=== PATIENT | male | born 1990 | race African-American/Black ===

== ENCOUNTER 2016-07-24 20:50 | Emergency (ER) | payer OTHER ==
[~2016-07-24] VITALS: Ht 172.7 cm; Wt 104.3 kg
[~2016-07-24 20:50] MED LIST: AUGMENTIN 875-1 EACH PO; COLACE 100 MG100 MG PO; FLEXERIL PO; IBUPROFEN 600600 M1 PO; IBUPROFEN 800800 M1 PO; NOHOMEMEDICATIONS; NORCO 5-325 TA1 EACH PO; PEPCID20 MG PO; TUSSIONEX PENN473 ML PO; ZOFRAN ODT4 MG PO
[2016-07-24 21:25] LABS: ABSOLUTE NEUTROPHILS 4.3 thou/uL (1.4-8.2); BASOPHILS 0.4 % (0.0-2.0); EOSINOPHILS 1.2 % (0.0-3.0); HEMATOCRIT 43.1 % (42.0-52.0); HEMOGLOBIN 14.3 gm/dL (14.0-18.0); LYMPHOCYTES 36.1 % (24.0-44.0); MCH 29.5 pg (26.0-34.0); MCHC 33.1 g/dL (28.0-37.0); MCV 89.2 fL (80.0-100.0); MONOCYTES 8.5 % (1.0-8.0); PLATELET COUNT 154 thou/uL (150-400); POLYS 53.8 % (36.0-66.0); RBC 4.83 mil/uL (4.50-6.00); RDW 12.9 % (10.5-14.5)
[2016-07-24 21:26] LABS: MANUAL DIFF NO
[2016-07-24 21:34] LABS: CALCIUM 8.9 mg/dL (8.5-10.1); POTASSIUM 3.5 mmol/L (3.5-5.1)
[2016-07-24] MEDS ORDERED: ONDANSETRON HCL4 M2 PO (21:52)
[2016-07-24 21:55] VITALS: BP 112/60
== END 2016-07-24 21:55 | disposition home or self-care (01) ==
LOC: ER 20:50
PROVIDERS: Nurse Practitioner
DX: R10.9 Unspecified abdominal pain (principal); G89.29 Other chronic pain; Z87.891 Personal history of nicotine dependence

== ENCOUNTER 2017-05-28 14:24 | Emergency (ER) | payer OTHER ==
[~2017-05-28] VITALS: Ht 185.4 cm; Wt 107.5 kg
--- NOTE | ~2017-05-28 | EKG ---
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 : 1990 Requested By: Jairo Huff Order Number: [id number] MD: Elton Natarajan Measurements Intervals [place] Rate: 82 P: 51 IA: 148 QRS: -12 QRSD: 92 T: 2 QT: 361 QTc: 422 Interpretive Statements Sinus rhythm Borderline ST elevation, anterolateral leads No previous ECGs available for comparison Electronically Signed On 05-28-2017 17:21:08 RECOVERY MANAGER by Elton Natarajan [email or web address] <ELECTRONICALLY SIGNED> By: Elton Natarajan MD, [facility] 05/28/17 1721 1439 1439 Elton Natarajan MD, FACC /EPI
[~2017-05-28 14:24] MED LIST changes: +ONDANSETRON HCL4 M2 PO
[2017-05-28 15:04] LABS: ABSOLUTE NEUTROPHILS 4.6 thou/uL (1.4-8.2); BASOPHILS 0.7 % (0.0-2.0); EOSINOPHILS 1.7 % (0.0-3.0); HEMATOCRIT 50.5 % (42.0-52.0); HEMOGLOBIN 16.8 gm/dL (14.0-18.0); MCH 30.1 pg (26.0-34.0); MCHC 33.2 g/dL (28.0-37.0); MCV 90.6 fL (80.0-100.0); MONOCYTES 8.7 % (1.0-8.0); PLATELET COUNT 175 thou/uL (150-400); POLYS 48.9 % (36.0-66.0); RBC 5.57 mil/uL (4.50-6.00); RDW 13.1 % (10.5-14.5); WBC 9.3 thou/uL (4.0-11.0)
[2017-05-28 15:11] LABS: CALCIUM 8.6 mg/dL (8.5-10.1); CREATININE 1.4 mg/dL (0.7-1.3); POTASSIUM 4.2 mmol/L (3.5-5.1)
[2017-05-28 15:17] LABS: ALBUMIN 3.6 g/dL (3.4-5.0); TOTAL BILIRUBIN 0.4 mg/dL (<0.1-1.0); TOTAL PROTEIN 6.1 g/dL (6.4-8.2)
[2017-05-28] MEDS ORDERED: ONDANSETRON HCL4 M2 PO (15:58)
[2017-05-28 16:04] LABS: URINE BILIRUBIN 1+ (Negative); URINE BLOOD NEGATIVE (Negative); URINE CLARITY CLEAR; URINE COLOR YELLOW; URINE GLUCOSE-RANDOM* NEGATIVE (Negative); URINE KETONES NEGATIVE (Negative); URINE LEUKOCYTES NEGATIVE (Negative); URINE NITRITE NEGATIVE (Negative); URINE PROTEIN (DIPSTICK) 1+ (Negative); URINE SPECIFIC GRAVITY >= 1.030 (1.005-1.035); URINE UROBILINOGEN 0.2 E.U./dl (0.2-1.0)
[2017-05-28 16:07] LABS: ICTOTEST (BILI CONFIRMATORY) Negative (Negative)
[2017-05-28 16:12] LABS: AMP/METHAMP Negative (Negative); BARBITURATES Negative (Negative); BENZODIAZEPINES Negative (Negative); COCAINE Negative (Negative); METHADONE Negative (Negative); OPIATES Negative (Negative); PCP Negative (Negative)
[2017-05-28 16:19] LABS: BACTERIA 1-9 Few /HPF (None Seen); CRYSTALS None Seen /LPF (None Seen); FINE GRANULAR CASTS 4-10 Moderate /LPF (None Seen); HYALINE CASTS >10 Many /LPF (None Seen); MUCUS >6 Heavy strn/LPF (None Seen); SQUAMOUS 4-10 Moderate /LPF (0-3); URINE RBC 3-10 Few /HPF (0-2); URINE WBC 6-15 Few /HPF (0-5)
== END 2017-05-28 16:16 | disposition home or self-care (01) ==
LOC: ER 14:24
PROVIDERS: Nurse Practitioner
DX: R55 Syncope and collapse (principal); R11.2 Nausea with vomiting, unspecified; R53.1 Weakness; Z87.891 Personal history of nicotine dependence

== ENCOUNTER 2017-10-19 08:31 | Emergency (ER) | payer OTHER ==
[~2017-10-19] VITALS: Ht 170.2 cm; Wt 102.1 kg
[2017-10-19] MEDS ORDERED: IBUPROFEN 400400 M2 PO (09:17)
[2017-10-19] MEDS ORDERED: NORCO 5-325 TA1 EACH PO (09:17)
[2017-10-19 09:29] VITALS: BP 114/71
== END 2017-10-19 09:30 | disposition home or self-care (01) ==
LOC: ER 08:31
DX: M19.072 Primary osteoarthritis, left ankle and foot (principal); M21.42 Flat foot [pes planus] (acquired), left foot; G89.29 Other chronic pain; R10.9 Unspecified abdominal pain; Z87.891 Personal history of nicotine dependence

== ENCOUNTER 2018-02-03 21:42 | Emergency (ER) | payer OTHER ==
[~2018-02-03] VITALS: Ht 170.2 cm; Wt 102.1 kg
--- NOTE | ~2018-02-03 | EKG ---
[address] [address] [facility] [employer] [place] [address] ELECTROCARDIOGRAM REPORT Name: ALEJANDRO FOSTER Room #: DEP Cal#: [id number] Admission: 02/03/18 Attend Phys: Discharge: 02/03/18 Date of : [birth year] Report #: [id number] THIS REPORT FOR: //name// [facility] ED Test Date: 2018-02-03 Test Time: 22:08:33 Pat Name: ALEJANDRO PERERA Department: Room: Gender: M Chief Clerk: yao : 1990 Requested By: Jaye Peraza Order Number: [id number] MD: Elton Natarajan Measurements Intervals [place] Rate: 56 P: -25 VA: 173 QRS: -20 QRSD: 100 T: -11 QT: 394 QTc: 381 Interpretive Statements Sinus rhythm RSR' in V1 or V2, probably normal variant Borderline T abnormalities, inferior leads Early repolarization Compared to ECG 05/28/2017 14:39:42 No significant change was found Electronically Signed On 02-04-2018 9:06:23 CDT by Elton Natarajan [email or web address] <ELECTRONICALLY SIGNED> By: Elton Natarajan MD, [facility] 02/04/1806 07 07 Elton Natarajan MD, [facility] /EPI
[~2018-02-03 21:42] MED LIST changes: +IBUPROFEN 400400 M2 PO
[2018-02-03 22:44] LABS: HEMATOCRIT 44.1 % (42.0-52.0); MCH 30.4 pg (26.0-34.0); MCV 89.5 fL (80.0-100.0); RBC 4.93 mil/uL (4.50-6.00); RDW 13.2 % (10.5-14.5); WBC 8.1 thou/uL (4.0-11.0)
[2018-02-03 22:51] LABS: ANION GAP 5 mmol/L (7-16); BUN 24 mg/dL (7-18); CALCIUM 9.1 mg/dL (8.5-10.1); CHLORIDE 105 mmol/L (98-107); CO2 28 mmol/L (21-32); CREATININE 1.2 mg/dL (0.7-1.3); GLUCOSE 96 mg/dL (74-106); POTASSIUM 3.9 mmol/L (3.5-5.1); SODIUM 138 mmol/L (136-145)
[2018-02-03 22:59] LABS: TROPONIN-I <0.06 ng/mL (<0.06)
[2018-02-03 23:22] VITALS: BP 104/62
== END 2018-02-03 23:23 | disposition home or self-care (01) ==
LOC: ER 21:42
PROVIDERS: Student in an Organized Health Care Education/Training Program
DX: R55 Syncope and collapse (principal); H61.22 Impacted cerumen, left ear; G89.29 Other chronic pain; R10.9 Unspecified abdominal pain; Z87.891 Personal history of nicotine dependence

== ENCOUNTER 2018-10-19 10:13 | Emergency (ER) | payer OTHER ==
[~2018-10-19] VITALS: Ht 167.6 cm; Wt 104.3 kg
[2018-10-19 10:36] LABS: URINE BILIRUBIN NEGATIVE (Negative); URINE BLOOD NEGATIVE (Negative); URINE CLARITY CLEAR; URINE COLOR YELLOW; URINE GLUCOSE-RANDOM* NEGATIVE (Negative); URINE KETONES NEGATIVE (Negative); URINE LEUKOCYTES-REFLEX NEGATIVE (Negative); URINE NITRITE-REFLEX NEGATIVE (Negative); URINE PROTEIN (DIPSTICK) NEGATIVE (Negative); URINE SPECIFIC GRAVITY >= 1.030 (1.005-1.035); URINE UROBILINOGEN 0.2 E.U./dl (0.2-1.0)
[2018-10-19 10:40] LABS: ABSOLUTE NEUTROPHILS 3.9 thou/uL (1.4-8.2); BASOPHILS 0.5 % (0.0-2.0); EOSINOPHILS 2.1 % (0.0-3.0); HEMATOCRIT 43.4 % (42.0-52.0); HEMOGLOBIN 14.4 gm/dL (14.0-18.0); LYMPHOCYTES 28.7 % (24.0-44.0); MCH 30.3 pg (26.0-34.0); MCHC 33.2 g/dL (28.0-37.0); MCV 91.4 fL (80.0-100.0); MONOCYTES 6.8 % (1.0-8.0); PLATELET COUNT 194 thou/uL (150-400); POLYS 61.9 % (36.0-66.0); RBC 4.75 mil/uL (4.50-6.00); RDW 13.5 % (10.5-14.5); WBC 6.4 thou/uL (4.0-11.0)
[2018-10-19 10:54] LABS: CREATININE 1.1 mg/dL (0.7-1.3)
[2018-10-19 10:58] LABS: TOTAL BILIRUBIN 0.2 mg/dL (<0.1-1.0); TOTAL PROTEIN 7.1 g/dL (6.4-8.2)
[2018-10-19 11:20] VITALS: BP 109/61
[2018-10-19] MEDS ORDERED: ONDANSETRON HCL4 M2 PO (11:20)
== END 2018-10-19 11:20 | disposition home or self-care (01) ==
LOC: ER 10:13
PROVIDERS: Physician Assistant
DX: R11.2 Nausea with vomiting, unspecified (principal); R19.7 Diarrhea, unspecified; R10.13 Epigastric pain; R10.32 Left lower quadrant pain; G89.29 Other chronic pain; Z87.891 Personal history of nicotine dependence; Z98.890 Other specified postprocedural states

== ENCOUNTER 2019-09-20 23:44 | Emergency (ER) | payer OTHER ==
[~2019-09-20] VITALS: Ht 170.2 cm; Wt 106.6 kg
[2019-09-20 23:47] VITALS: BP 141/83
[2019-09-21] MEDS ORDERED: KEFLEX500 M1 PO (00:07)
[2019-09-22] MEDS ORDERED: BACTRIM DS TAB1 EACH PO (23:03)
== END 2019-09-21 00:30 | disposition home or self-care (01) ==
LOC: ER 23:44
DX: L03.115 Cellulitis of right lower limb (principal); F12.90 Cannabis use, unspecified, uncomplicated; G89.29 Other chronic pain; Z87.891 Personal history of nicotine dependence; Z91.013 Allergy to seafood; Z98.890 Other specified postprocedural states

== ENCOUNTER 2019-09-22 22:23 | Emergency (ER) | payer OTHER ==
[~2019-09-22] VITALS: Ht 170.2 cm; Wt 106.6 kg
[~2019-09-22 22:23] MED LIST changes: +KEFLEX500 M1 PO
[2019-09-22 22:26] VITALS: BP 143/71
[2019-09-22] MEDS ORDERED: BACTRIM DS TAB1 EACH PO (23:03)
== END 2019-09-22 23:14 | disposition home or self-care (01) ==
LOC: ER 22:23
DX: L03.115 Cellulitis of right lower limb (principal); R11.0 Nausea; Z91.013 Allergy to seafood; Z87.891 Personal history of nicotine dependence

== ENCOUNTER 2019-10-07 22:49 | Emergency (ER) | payer OTHER ==
[~2019-10-07] VITALS: Ht 170.2 cm; Wt 104.3 kg
[~2019-10-07 22:49] MED LIST changes: +BACTRIM DS TAB1 EACH PO
[2019-10-07 22:56] VITALS: BP 126/82
[2019-10-07] MEDS ORDERED: NOHOMEMEDICATIONS (22:59)
[2019-10-07 23:22] LABS: URINE BILIRUBIN NEGATIVE (Negative); URINE BLOOD TRACE (Negative); URINE CLARITY SL CLOUDY; URINE COLOR YELLOW; URINE GLUCOSE-RANDOM* NEGATIVE (Negative); URINE KETONES NEGATIVE (Negative); URINE LEUKOCYTES-REFLEX 2+ (Negative); URINE NITRITE-REFLEX NEGATIVE (Negative); URINE PROTEIN (DIPSTICK) NEGATIVE (Negative); URINE SPECIFIC GRAVITY >= 1.030 (1.005-1.035); URINE UROBILINOGEN 0.2 E.U./dl (0.2-1.0)
[2019-10-07 23:30] LABS: BACTERIA-REFLEX 1-9 Few /HPF (None Seen); CASTS None Seen /LPF (None Seen); CRYSTALS None Seen /LPF (None Seen); SQUAMOUS None Seen /LPF (0-3); URINE RBC 0-2 Rare /HPF (0-2); URINE WBC-REFLEX >25 Many /HPF (0-5)
== END 2019-10-07 23:35 | disposition home or self-care (01) ==
LOC: ER 22:49
PROVIDERS: Emergency Medicine
DX: A64 Unspecified sexually transmitted disease (principal); G89.29 Other chronic pain; Z87.891 Personal history of nicotine dependence; Z91.013 Allergy to seafood; Z98.890 Other specified postprocedural states

== ENCOUNTER 2020-12-09 17:20 | Emergency (ER) | payer OTHER ==
[~2020-12-09] VITALS: Ht 170.2 cm; Wt 104.3 kg
[2020-12-09 18:46] LABS: URINE BILIRUBIN NEGATIVE (Negative); URINE BLOOD NEGATIVE (Negative); URINE CLARITY CLEAR; URINE COLOR YELLOW; URINE GLUCOSE-RANDOM* NEGATIVE (Negative); URINE KETONES NEGATIVE (Negative); URINE LEUKOCYTES-REFLEX NEGATIVE (Negative); URINE NITRITE-REFLEX NEGATIVE (Negative); URINE PROTEIN (DIPSTICK) NEGATIVE (Negative); URINE SPECIFIC GRAVITY >= 1.030 (1.005-1.035); URINE UROBILINOGEN 0.2 E.U./dl (0.2-1.0)
[2020-12-09 19:38] VITALS: BP 127/87
== END 2020-12-09 19:38 | disposition home or self-care (01) ==
LOC: ER 17:20
PROVIDERS: Nurse Practitioner Family
DX: R36.9 Urethral discharge, unspecified (principal); Z20.2 Contact with and (suspected) exposure to infections with a predominantly sexual mode of transmission; Z98.890 Other specified postprocedural states; Z91.041 Radiographic dye allergy status; Z91.013 Allergy to seafood; Z91.09 Other allergy status, other than to drugs and biological substances; Z87.891 Personal history of nicotine dependence

== ENCOUNTER 2021-03-28 19:29 | Emergency (ER) | payer OTHER ==
[~2021-03-28] VITALS: Ht 170.2 cm; Wt 102.1 kg
[2021-03-28 21:21] VITALS: BP 146/84
== END 2021-03-28 20:47 | disposition home or self-care (01) ==
LOC: ER 19:29
PROVIDERS: Physician Assistant
DX: A56.01 Chlamydial cystitis and urethritis (principal); F12.90 Cannabis use, unspecified, uncomplicated; Z98.890 Other specified postprocedural states; Z91.041 Radiographic dye allergy status; Z91.013 Allergy to seafood; Z91.09 Other allergy status, other than to drugs and biological substances; Z87.891 Personal history of nicotine dependence